=== PATIENT | female | born 1930 | race Caucasian/White ===

== ENCOUNTER 2016-05-27 11:37 | Inpatient (IN) | payer BC ==
--- NOTE | ~2016-05-27 | HP ---
History And Physical [id number] [facility] [place]. [address] NAME: LESLI PARKER : 30 STATUS : ADM IN PAT#: [id number] AGE: 85 ADM/REG DATE : 05/27/16 MR#: [id number] REPORT SERV DATE: 05/27/16 DICTATED BY: STU MAYFIELD DATE: 05/27/16 REPORT STATUS : Draft TRANSCRIBED BY: MODL DATE: 05/27/16 DATE OF ADMISSION: 05/27/2016 CHIEF COMPLAINT: Cellulitis and rash. HISTORY OF PRESENT ILLNESS: The patient is an 85-year-old female. She has a past medical history significant for: 1. Diabetes. 2. Ileostomy. 3. History of optic neuritis. She presents today as a transfer from [facility] where she has been an inpatient since 05/17/2016. The patient was hospitalized for cellulitis and reason for transfer was ID consultation and failure to improve on antibiotics. Basic story per the patient, approximately six weeks ago, she was getting out of a car, twisted her ankle, and approximately 10 days later, she started experiencing discoloration of her foot. She saw her PCP. Conservative measures were recommended first. Then, she was placed on several days of Keflex, and at a followup appointment, things seemed to be improving, so it was stopped. Several days later, her symptoms recurred. She was placed back on the Keflex for eight days. Her symptoms did not resolve and she was referred to the emergency department. In the interim, she did have a visit to a walk-in clinic also. Evaluation was apparently an ultrasound to rule out a DVT. We do have an ultrasound here on 05/09/2016, which was negative. She had an appointment made to see Dr. Okeefe, but she prior to that appointment went to the ER at [facility]. She was hospitalized there and apparently had an adverse reaction to clindamycin shortly after starting it and she broke out in a systemic rash. Prior to that, she had apparently had Ancef and some amount of vancomycin and Zosyn. On discussing with her daughter, who has been present through her whole ordeal, she states that whenever the vancomycin was started or stopped is when she seemed to make her most improvement, although there was never any significant resolution; it would be more of a slowing of the progression. Currently, she is without complaints other than some discomfort in her lower extremity and chills. PAST MEDICAL HISTORY: As covered above. PAST SURGICAL HISTORY: She has had an ileostomy after a perforated colon. She has also had some orthopedic surgery in the past. CURRENT MEDICATIONS: Pharmacy list is pending, but per her records, she was on insulin, Lantus and Humalog, losartan, Synthroid, gabapentin, Lasix, Prilosec, potassium, and Xanax. ALLERGIES: PROBABLY CLINDAMYCIN. FAMILY HISTORY: Mother in an MVA and father of a stroke in his 70s. SOCIAL HISTORY: Nondrinker, nonsmoker. History And Physical [address] [address] NAME: LESLI PARKER : 30 STATUS : ADM IN [facility]#: [id number] AGE: 85 ADM/REG DATE : 05/27/16 MR#: [id number] REPORT SERV DATE: 05/27/16 DICTATED BY: STU MAYFIELD DATE: 05/27/16 REPORT STATUS : Draft TRANSCRIBED BY: AGUSTIN DATE: 05/27/16 REVIEW OF SYSTEMS: She has had a generalized rash on her chest, arms, legs, and back. She is having some pain and swelling in her lower extremities. She has had some apparently fluctuating blood pressures and blood sugars over at [facility] [place], operated by [facility], but no chest pain, palpitations, or shortness of breath. The remainder of her review of systems is negative. PHYSICAL EXAMINATION: VITAL SIGNS: They are currently pending. HEENT: Normocephalic, atraumatic. Sclerae nonicteric. NECK: Supple. HEART: Regular rate and rhythm. LUNGS: Clear to auscultation. ABDOMEN: Obese, benign. EXTREMITIES: There does appear to be some dependent edema bilaterally. The left leg is clearly involved with what appears to be cellulitis above the knee and circumferential to the lower extremity. Past the knee, she has more of a petechial-type rash which looks more in line with what is on her chest and back and other extremities. LABORATORY DATA: Pending lab here per transferring physician, she had negative x-rays there for foreign body. She had an ultrasound there that was negative, although I do not find the actual report, just a notation that it was done and negative. Our ultrasound here done on 05/09/2016 was negative. It was stated that she had no blood cultures done at [place] for review. ASSESSMENT: Cellulitis with possible superimposed drug eruption, possibly due to clindamycin. PLAN: 1. The patient has been admitted. 2. We will consult ID. 3. Re-culture. 4. Check an A1c. 5. Med list when available, titrating antihypertensives and blood sugars as needed. TLF/MODL Stu Mayfield M.D. / [id number] CC: Yusef England M.D.
--- NOTE | ~2016-05-27 | DS ---
Discharge Summary [facility] [address] [place]. [address] NAME: LESLI PARKER : 30 STATUS : DIS IN PAT#: [id number] AGE: 85 ADM/REG DATE : 05/27/16 MR#: [id number] REPORT SERV DATE: 06/03/16 DICTATED BY: QUINN PALACIOS DATE: 06/02/16 REPORT STATUS : Draft TRANSCRIBED BY: MODL DATE: 06/02/16 ADMISSION DATE: 05/27/2016 DISCHARGE DATE: 06/02/2016 DISCHARGE DIAGNOSES: 1. Left leg cellulitis. 2. Wide spread drug rash covering pretty much her entire body. 3. Hypertension. 4. Diabetes type 2. 5. History of ileostomy. CONSULT: Dr. Escalante of Infectious Disease. PROCEDURES: None. HOSPITAL COURSE: This is an 85-year-old lady, who was admitted to the hospital with left lower extremity cellulitis and drug rash. The patient was actually transferred from [facility], where she has been inpatient ever since the beginning of May. For details, please refer to H and P by Dr. Campbell dated 05/27/2016. In summary, the patient was admitted and her antibiotic therapy was carefully selected by Infectious Disease. The patient was maintained on IV vancomycin. The patient was previously on a very short course of vancomycin and Zosyn as well as a longer course of Ancef and clindamycin at [facility] and the patient had developed wide spread rash that was thought to be secondary to a reaction to the antibiotics. Unfortunately, throughout her hospital stay, the patient's drug rash never really subsided and at one point it got worse to a point of nearly necessitating a Dermatology consultation. The patient did have some response to systemic steroids and thus Dermatology consultation was held. Unfortunately, even with the systemic steroids, the patient has not gotten much better. However, the patient did remain quite stable throughout the hospital stay, and at this point in time. The patient was ready to move on to rehab and not to worry about drug rash that has been stable ever since the beginning of May. The patient does have her own cost report clerk that she will see once she leaves the hospital, which I agreed with. In terms of the left leg cellulitis, the patient was maintained on Vanco at our facility, which provided quite a bit of relief. Later, it was switched to p.o. Zyvox per Infectious Disease, which the patient tolerated well. The patient otherwise did not have any other complications during this hospital stay. The patient is now being discharged to [facility] to continue p.o. Zyvox therapy along with topical steroid therapy for the drug rash. The patient will also continue rehab there. DISCHARGE MEDICATIONS: 1. Zyvox for additional 5 days. 2. Hydrocortisone 1% topical cream as needed. Otherwise, no changes. Please review discharge med reconciliation. DISPOSITION: Discharged to [facility]. Discharge Summary [place] [id number] [place]. [address] NAME: LESLI PARKER : 30 STATUS : DIS IN PAT#: [id number] AGE: 85 ADM/REG DATE : 05/27/16 MR#: [id number] REPORT SERV DATE: 06/03/16 DICTATED BY: QUINN PALACIOS DATE: 06/02/16 REPORT STATUS : Draft TRANSCRIBED BY: AGUSTIN DATE: 06/02/16 FOLLOWUP: 1. Please follow up with PCP in the next one to two weeks. 2. Please follow up with her own cost report clerk in the next week. A total of 40 minutes spent in coordinating this patient's discharge today. NGUYEN/AGUSTIN Quinn Palacios MD / [id number] CC: MD Arabella Murphy M.D.
--- NOTE | ~2016-05-27 | CN ---
Consultation Report [facility] [address] [place]. [address] NAME: LESLI PARKER : 30 STATUS : ADM IN PAT#: [id number] AGE: 85 ADM/REG DATE : 05/27/16 MR#: [id number] REPORT SERV DATE: 05/27/16 DICTATED BY: BEAU QUIROZ DATE: 05/27/16 REPORT STATUS : Draft TRANSCRIBED BY: MODPapo DATE: 05/27/16 INFECTIOUS DISEASE CONSULT DATE OF CONSULTATION: REASON FOR REFERRAL: Evaluation and treatment of cellulitis, lower extremity, and also an allergic drug reaction to antibiotics. HISTORY OF PRESENT ILLNESS: The patient is an 85-year-old female. She has a history of diabetes mellitus, optic neuritis. She had a bowel obstruction in the 1970s, and required a total colectomy, and has had an ileostomy since then. She states she twisted her ankle on the left about 6 weeks ago and then developed increased swelling. She has a history of chronic swelling and based on her appearance, I suspect Ms. Parker had chronic venous stasis. Her ankle and calf began to turn red, so she was given Keflex on a couple of occasions by her primary care physician, but failed to improve, so on 05/17/2016, she went to the emergency room at [facility]. They elected to admit her, they started her on vancomycin and Zosyn. She said she began to feel better. On 05/19/2016, she was switched to Ancef and then on 05/20/2016, vancomycin was restarted and given for only 24 hours. She said she was then changed to clindamycin, was on Ancef and clindamycin up through 2 days ago, when she developed a diffuse erythematous macular papular very pruritic rash. Antibiotics were discontinued yesterday and they decided to transfer her to hospital where she could see Infectious Disease and chose here because she had seen our group before. She has been afebrile. She says the pain in the legs are definitely improved from when she got admitted first, but it do continue to be mildly painful at this point, though her biggest complaint is a pruritic rash. She denies any cuts or scrapes, open wounds to the leg. There has been no ulcers, no unusual environmental exposures. The only trauma was the twisted ankle as previously mentioned. PAST MEDICAL HISTORY: Otherwise unremarkable. MEDICATIONS: As mentioned above. 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 The concern now raise for both Ancef and clindamycin. She normally lives with family. She is , nonsmoker. No history of alcohol or substance abuse. FAMILY HISTORY: Noncontributory. PHYSICAL EXAMINATION: GENERAL: A nontoxic, elderly female, in no acute distress. She is alert and oriented x3. VITAL SIGNS: Temperature has not been recorded here yet or other vital signs. Her weight is 93 kg. HEENT: Sclerae clear. No oral lesions. NECK: Supple without lymphadenopathy. LUNGS: Clear. Consultation Report [id number] [place]. [address] NAME: LESLI PARKER : 30 STATUS : ADM IN [facility]#: [id number] AGE: 85 ADM/REG DATE : 05/27/16 MR#: [id number] REPORT SERV DATE: 05/27/16 DICTATED BY: BEAU QUIROZ DATE: 05/27/16 REPORT STATUS : Draft TRANSCRIBED BY: AGUSTIN DATE: 05/27/16 HEART: Regular rate and rhythm. ABDOMEN: Soft, nontender. Positive bowel sounds. EXTREMITIES: Both lower extremities are swollen with a shiny hairless skin, and swollen legs consistent with chronic venous stasis. On the left, there is a mild red appearance from the distal thigh all the way down to the toes that is mildly tender to palpation. No fluctuance palpated. No open lesions, drainage, or weeping. LABORATORIES: Still pending here. IMPRESSION: 1. I feel this is cellulitis due to chronic venous stasis and most likely a strep. Probably this would be better, the legs had been elevated and the antibiotics have not really had a good occasion to work because of that. 2. Drug reaction that is either Ancef or clindamycin, so we will have to avoid both. PLAN: 1. Recommend vancomycin for the antibiotic now. 2. Strict bedrest to get swelling down quickly. 3. We will follow the patient closely with you and once she is better, talk about long- term management of the venous stasis with intermittent bedrest and external compression. I appreciate very much your consulting on this patient. NANCY/AGUSTIN Beau Quiroz M.D. / [id number] CC: Yusef England M.D.
[~2016-05-27 11:37] MED LIST: AMIT50 PO; ATEN25 PO; ATV1 PO; BENICAR5 PO; BYSTOLIC; COZ50 PO; HYZAAR 100/25 T1 TAB PO; KCL40UDL PO; KDUR20 PO; L40 PO; LANTUS SC; LIDODERM T; LORTAB10 PO; MEVACOR40 MG PO; NOVOLOG SC; PRILO PO; PRILOSEC40 MG PO; PROTONIX PO; SYN.025B PO; SYN075 PO; VITAMIN D1000 UNI1 PO; XANAX1 MG PO; ZITH250 PO
[2016-05-27] MEDS ORDERED: LANTUS SC ×2 (15:42→15:43)
[2016-05-27] MEDS ORDERED: COZ50 PO (15:43)
[2016-05-27] MEDS ORDERED: SYN1 PO (15:43)
[2016-05-27] MEDS ORDERED: HUMALOG SC (15:43)
[2016-05-27] MEDS ORDERED: PRILO PO (15:44)
[2016-05-27] MEDS ORDERED: KLOR-CON M2020 MEQ PO (15:44)
[2016-05-27] MEDS ORDERED: NEUR800 PO (15:44)
[2016-05-27] MEDS ORDERED: X5 PO (15:45)
[2016-05-27] MEDS ORDERED: L40 PO (15:46)
[2016-05-27] MEDS ORDERED: REFRES1 OPH (15:47)
[2016-05-27 17:21] LABS: BASOPHILS 0.1 %; BASOPHILS ABSOLUTE 0.01 10/3/uL (0.0-0.16); EOSINOPHILS 5.8 %; EOSINOPHILS ABSOLUTE 0.73 10/3/uL (0.0-0.53); HEMOGLOBIN 10.9 g/dL (12.0-16.0); IMMATURE GRANULOCYTES 0.3 %; IMMATURE GRANULOCYTES ABSOLUTE 0.04 10/3/uL (0.0-0.11); LYMPHOCYTES 6.6 %; LYMPHOCYTES ABSOLUTE 0.83 10/3/uL (0.67-4.30); MEAN CORPUSCULAR HEMOGLOB 29.8 pg (26.0-34.0); MEAN PLATELET VOLUME 10.8 fL (9.2-13.0); MONOCYTES 6.7 %; MONOCYTES ABSOLUTE 0.84 10/3/uL (0.21-1.20); NEUTROPHILS 80.5 %; NEUTROPHILS ABSOLUTE 10.15 10/3/uL (2.02-8.40); PLATELET COUNT 208 10/3/uL (150-400); RBC DISTRIBUTION WIDTH 15.1 % (12.0-16.0); RED CELL COUNT 3.66 10/6/uL (4.0-5.6)
[2016-05-27 17:24] LABS: HEMATOCRIT 32.2 % (36.0-48.0); MANUAL DIFF NO %; MEAN CORPUS HGB CONC 33.9 g/dL (32.0-36.0); WHITE BLOOD CELLS 12.6 10/3/uL (4.5-10.5)
[2016-05-27 17:51] LABS: ALKALINE PHOSPHATASE 110 U/L (45-117); CHLORIDE, SERUM 110 MMOL/L (96-112); CO2 (CARBON DIOXIDE) 23 MMOL/L (24-34); CREATININE 0.83 MG/DL (0.55-1.02); GFR AFRICAN AMERICAN 75 ML/MIN (>=60); GFR NON AFRICAN AMERICAN 64 ML/MIN (>=60); GLUCOSE, SERUM 211 MG/DL (60-99); SGPT(ALT) 27 U/L (5-65); SODIUM, SERUM 141 MMOL/L (135-148); TOTAL BILIRUBIN 0.4 MG/DL (0-1.2); TOTAL PROTEIN 5.9 G/DL (6.0-8.5)
[2016-05-27 17:52] LABS: A/G RATIO 0.8 (0.7-1.9); ALBUMIN 2.7 G/DL (3.5-5.0); BUN (BLOOD UREA NITROGEN) 6 MG/DL (6-23); CALCIUM, SERUM 8.6 MG/DL (8.5-10.4); GLOBULIN 3.2 G/DL (2.5-4.1)
[2016-05-27 18:58] LABS: PROCALCITONIN 0.11 ng/mL (<0.5)
[2016-05-27 19:22] LABS: SGOT(AST) 27 U/L (5-40)
[2016-05-27 22:03] LABS: ASCORBIC ACID (UR NOT ORDER) NEG (NEG); BILIRUBIN, URINE NEGATIVE (NEG); KETONE, URINE 20 MG/DL (NEG); LEUKOCYTE ESTERASE(NOT OR TRACE (NEG); WBC (NOT ORDERED) (RFLEX) 8 (0-5)
[2016-05-28 16:59] LABS: ASCORBIC ACID (UR NOT ORDER) NEG (NEG); BILIRUBIN, URINE NEGATIVE (NEG); KETONE, URINE NEGATIVE (NEG); LEUKOCYTE ESTERASE(NOT OR TRACE (NEG); WBC (NOT ORDERED) (RFLEX) 6 (0-5)
[2016-05-30 06:37] LABS: BASOPHILS 0.1 %; BASOPHILS ABSOLUTE 0.03 10/3/uL (0.0-0.16); EOSINOPHILS 1.9 %; HEMATOCRIT 32.9 % (36.0-48.0); HEMOGLOBIN 10.7 g/dL (12.0-16.0); IMMATURE GRANULOCYTES 0.4 %; IMMATURE GRANULOCYTES ABSOLUTE 0.09 10/3/uL (0.0-0.11); LYMPHOCYTES ABSOLUTE 1.28 10/3/uL (0.67-4.30); MEAN CORPUS HGB CONC 32.5 g/dL (32.0-36.0); MEAN CORPUSCULAR HEMOGLOB 29.2 pg (26.0-34.0); MEAN CORPUSCULAR VOLUME 89.9 fL (80-100); MEAN PLATELET VOLUME 10.9 fL (9.2-13.0); MONOCYTES 6.7 %; MONOCYTES ABSOLUTE 1.43 10/3/uL (0.21-1.20); NEUTROPHILS 84.9 %; NEUTROPHILS ABSOLUTE 18.02 10/3/uL (2.02-8.40); PLATELET COUNT 228 10/3/uL (150-400); RBC DISTRIBUTION WIDTH 15.4 % (12.0-16.0); RED CELL COUNT 3.66 10/6/uL (4.0-5.6)
[2016-05-30 06:38] LABS: MANUAL DIFF NO %; WHITE BLOOD CELLS 21.3 10/3/uL (4.5-10.5)
[2016-05-30 08:18] LABS: CALCIUM, SERUM 8.9 MG/DL (8.5-10.4); CHLORIDE, SERUM 109 MMOL/L (96-112); CO2 (CARBON DIOXIDE) 25 MMOL/L (24-34); CREATININE 1.03 MG/DL (0.55-1.02); GFR AFRICAN AMERICAN 57 ML/MIN (>=60); GFR NON AFRICAN AMERICAN 50 ML/MIN (>=60); POTASSIUM, SERUM 4.2 MMOL/L (3.5-5.3); SODIUM, SERUM 142 MMOL/L (135-148)
[2016-05-30 08:19] LABS: BUN (BLOOD UREA NITROGEN) 10 MG/DL (6-23); GLUCOSE, SERUM 98 MG/DL (60-99)
[2016-05-31 07:07] LABS: BASOPHILS 0.2 %; BASOPHILS ABSOLUTE 0.05 10/3/uL (0.0-0.16); EOSINOPHILS 2.5 %; HEMATOCRIT 32.2 % (36.0-48.0); HEMOGLOBIN 10.3 g/dL (12.0-16.0); IMMATURE GRANULOCYTES 0.4 %; IMMATURE GRANULOCYTES ABSOLUTE 0.09 10/3/uL (0.0-0.11); LYMPHOCYTES ABSOLUTE 1.81 10/3/uL (0.67-4.30); MANUAL DIFF NO %; MEAN CORPUSCULAR HEMOGLOB 28.7 pg (26.0-34.0); MEAN CORPUSCULAR VOLUME 89.7 fL (80-100); MONOCYTES 7.1 %; MONOCYTES ABSOLUTE 1.43 10/3/uL (0.21-1.20); NEUTROPHILS 80.8 %; NEUTROPHILS ABSOLUTE 16.33 10/3/uL (2.02-8.40); PLATELET COUNT 237 10/3/uL (150-400); RBC DISTRIBUTION WIDTH 15.4 % (12.0-16.0); RED CELL COUNT 3.59 10/6/uL (4.0-5.6); WHITE BLOOD CELLS 20.2 10/3/uL (4.5-10.5)
[2016-05-31 07:19] LABS: BUN (BLOOD UREA NITROGEN) 14 MG/DL (6-23); CALCIUM, SERUM 8.8 MG/DL (8.5-10.4); CHLORIDE, SERUM 112 MMOL/L (96-112); CO2 (CARBON DIOXIDE) 23 MMOL/L (24-34); CREATININE 0.97 MG/DL (0.55-1.02); GFR AFRICAN AMERICAN 62 ML/MIN (>=60); GFR NON AFRICAN AMERICAN 53 ML/MIN (>=60); GLUCOSE, SERUM 100 MG/DL (60-99); POTASSIUM, SERUM 4.2 MMOL/L (3.5-5.3); SODIUM, SERUM 144 MMOL/L (135-148)
== END 2016-06-02 13:33 | DRG 603 ==
LOC: 4SO 11:37
PROVIDERS: Internal Medicine
DX: L03.116 Cellulitis of left lower limb (principal); E11.9 Type 2 diabetes mellitus without complications; I87.8 Other specified disorders of veins; T36.8X5A Adverse effect of other systemic antibiotics, initial encounter; L27.0 Generalized skin eruption due to drugs and medicaments taken internally; Z79.4 Long term (current) use of insulin; Z98.890 Other specified postprocedural states
CPT/HCPCS: 71010; 80048; 80053; 81001; 82962; 84132; 84145; 85025; 87040; 97110-GP; 97116-GP; 97161-GP; A9270-GY; J0360; J3370